=== PATIENT | female | born 1950 | race Caucasian/White ===

== ENCOUNTER 2021-07-04 23:37 | Emergency (ER) | payer MEDICARE ==
--- NOTE | 2021-07-05 00:18 | Emergency Department Report ---
ED Extremity Problem HPI - General Chief complaint: Extremity Injury, Lower Stated complaint: BOTH LEG SWOLLEN Time Seen by Provider: 07/05/21 00:06 Source: patient, EMS Mode of arrival: Stretcher Limitations: No Limitations - History of Present Illness Initial comments: 70-year-old female, history of hypertension, "kidney problems", arthritis of bilateral knees, presents to ED with bilateral foot swelling x1 week. Patient states she lives in [place], [place]. States she has been in [place] with her daughter for the last 4 months. Patient states she did not have her medications with her, so she has not been taking her medications. Patient reports onset of swelling 1 week ago. Patient states her feet are so painful and swollen now that she has been unable to walk. She denies any chest pain or shortness of breath. Patient reports chronic pain in bilateral knees. States she was told that she needs to have knee replacement surgery. MD Complaint: extremity swelling -: week(s) (1) Location: other (Bilateral feet and ankles) History of Same: No Severity scale (0 -10): 9 Quality: aching Consistency: constant Improves with: nothing Worsens with: nothing Associated Symptoms: denies: chest pain, shortness of breath - Related Data Previous Rx's Medication Instructions Recorded Last Taken Type Furosemide [Lasix] 20 mg PO QDAY #7 tablet 07/05/21 Unknown Rx Sulfamethoxazole/Trimethoprim 1 each PO BID 7 Days #14 tablet 07/05/21 Unknown Rx [Bactrim DS TAB] traMADoL [Ultram] 50 mg PO Q6HR PRN #7 tablet 07/05/21 Unknown Rx ED Review of Systems ROS: Stated complaint: BOTH LEG SWOLLEN Other details as noted in HPI Comment: All other systems reviewed and negative Constitutional: denies: chills, fever Respiratory: denies: shortness of breath Cardiovascular: denies: chest pain Musculoskeletal: as per HPI ED Past Medical Hx - Past Medical History Previous Medical History?: Yes Hx Hypertension: Yes Additional medical history: non compliant w/ BP meds - Medications Home Medications: Home Medications Medication Instructions Recorded Confirmed Last Taken Type Furosemide [Lasix] 20 mg PO QDAY #7 tablet 07/05/21 Unknown Rx Sulfamethoxazole/Trimethoprim 1 each PO BID 7 Days #14 tablet 07/05/21 Unknown Rx [Bactrim DS TAB] traMADoL [Ultram] 50 mg PO Q6HR PRN #7 tablet 10/27/21 Unknown Rx ED Physical Exam - General Limitations: No Limitations General appearance: alert, in no apparent distress - Head Head exam: Present: atraumatic, normocephalic - Eye Eye exam: Present: normal appearance, EOMI - ENT ENT exam: Present: mucous membranes moist - Neck Neck exam: Present: normal inspection - Respiratory Respiratory exam: Present: normal lung sounds bilaterally. Absent: respiratory distress - Cardiovascular Cardiovascular Exam: Present: regular rate, normal rhythm - GI/Abdominal GI/Abdominal exam: Present: soft. Absent: distended, tenderness - Extremities Exam Extremities exam: Present: pedal edema (4+ pitting edema to bilateral feet and ankles), calf tenderness, other (left foot with slight erythema) - Neurological Exam Neurological exam: Present: alert, oriented X3 - Psychiatric Psychiatric exam: Present: normal affect, normal mood - Skin Skin exam: Present: warm, dry, intact, normal color ED Course Vital Signs 07/04/21 07/05/21 07/05/21 23:53 01:06 01:15 Temperature 99.1 F Pulse Rate 100 H Respiratory 16 Rate Blood Pressure 134/78 Blood Pressure 162/100 [Left] O2 Sat by Pulse 98 83 L 99 Oximetry ED Medical Decision Making - Lab Data Result diagrams: 07/05/21 00:22 07/05/21 00:22 Critical care attestation.: If time is entered above; I have spent that time in minutes in the direct care of this critically ill patient, excluding procedure time. ED Disposition Clinical Impression: Cellulitis of left foot, Edema of both feet Disposition: 01 HOME / SELF CARE / HOMELESS Is pt being admited?: No Condition: Stable Instructions: Cellulitis, Adult, Peripheral Edema Prescriptions: Sulfamethoxazole/Trimethoprim [Bactrim DS TAB] 1 each PO BID 7 Days #14 tablet Furosemide [Lasix] 20 mg PO QDAY #7 tablet traMADoL [Ultram] 50 mg PO Q6HR PRN #7 tablet PRN Reason: Pain Referrals: [facility] [Provider Group] - 3-5 Days Time of Disposition: 02:02
[2021-07-05 01:04] LABS: BUN/Creatinine Ratio 10; Blood Urea Nitrogen 7 mg/dL (7-17); Calcium 9.6 mg/dL (8.4-10.2); Hemolysis Index 165
[2021-07-05 01:08] LABS: Alanine Aminotransferase 18 units/L (7-56); Albumin 3.5 g/dL (3.9-5)
[2021-07-05 01:10] LABS: Bilirubin,Direct < 0.2 mg/dL (0-0.2)
[2021-07-05 01:16] LABS: Basophils % (Auto) 0.4 % (0.0-1.8); Eosinophils % (Auto) 0.5 % (0.0-4.3); Hematocrit 43.5 % (30.3-42.9); Hemoglobin 14.2 gm/dl (10.1-14.3); Lymphocytes # (Auto) 1.2 K/mm3 (1.2-5.4); Mean Corpuscular HGB Conc 33 % (30-34); Mean Corpuscular Volume 89 fl (79-97); Monocytes # (Auto) 0.9 K/mm3 (0.0-0.8); Monocytes % (Auto) 9.2 % (0.0-7.3); Platelet Count 340 K/mm3 (140-440); Red Blood Count 4.88 M/mm3 (3.65-5.03); Red Cell Distribution Width 15.6 % (13.2-15.2)
[2021-07-05 01:45] LABS: Partial Thromboplastin Time 28.1 Sec. (24.2-36.6)
[2021-07-05 01:49] LABS: INR 1.03 (0.87-1.13)
[2021-07-05] MEDS ORDERED: traMADol 50 MG TAB PO ONE (01:56)
[2021-07-05] MEDS ORDERED: FUROSEMIDE 20 MG TAB PO ONE (01:56)
--- NOTE | 2021-07-05 02:58 | Vascular Lab Report ---
Bilateral lower extremity Doppler venous ultrasound INDICATION: Swelling FINDINGS: Bilateral common femoral veins, superficial femoral veins and popliteal veins have normal c ompressibility and phasic flow. There is a left cystic area in the anterior knee measuring 4.6 x 4.3 x 2.3 cm. IMPRESSION: Large fluid collection anterior left knee. No evidence for DVT. Signer Name: Arsh Gabriel MD Signed: 07/05/2021 2:54 AM Workstation Name: [id number]
[2021-07-05 06:01] VITALS: BP 148/76
== END 2021-07-05 05:45 | disposition home or self-care (01) ==
LOC: ED 23:37
DX: L03.116 Cellulitis of left lower limb (principal); R60.0 Localized edema; R79.1 Abnormal coagulation profile; I10 Essential (primary) hypertension; Z79.899 Other long term (current) drug therapy
CPT/HCPCS: 36415; 80048; 80076; 83880; 85025; 85379; 85610; 85730; 93970; 99284